=== PATIENT | male | born 1995 | race Caucasian/White ===

== ENCOUNTER 2016-09-10 07:16 | Emergency (ER) | payer OTHER ==
--- NOTE | 2016-09-10 09:08 | DIAGNOSTIC IMAGING REPORT ---
PROCEDURE: XR FINGER - LEFT INDICATION: TRAUMA/INJURY TECHNIQUE: A P hand and two views of the left first digit. COMPARISON: None. FINDINGS: Normal mineralization. No fractures. Normal osseous alignment. No suspicious soft-tissue calcification or radiodense foreign bodies. IMPRESSION: 1. Intact hand and left first digit.
--- NOTE | 2016-09-10 09:47 | ED CLINICAL REPORT ---
Clinical Report - Physicians/Mid Levels [facility] [address] [place] [address] 09/10/2016 7:23 Patient: DWAYNE GRULLON Time Seen: 09:04; initial patient contact. Arrived- By private vehicle. Historian- patient. HISTORY OF PRESENT ILLNESS Chief Complaint: Injury to the left thumb. The injury happened just prior to arrival. Occurred at work. The patient sustained a crush injury- caught hand in machine. Patient is experiencing mild pain. Patient denies injury to the head. REVIEW OF SYSTEMS The patient sustained a laceration. No swelling, tingling, numbness, weakness or foreign body. All systems otherwise negative, except as recorded above. PAST HISTORY Negative. The patient's dominant hand is the right. Last tetanus immunization was more than 5 years ago. Problems: no known problems. Surgeries: No history of previous surgery. Additional Surgeries: no known surgeries. Medications: None. Allergies: No Known Drug Allergy. SOCIAL HISTORY Never smoker. No alcohol use or drug use. ADDITIONAL NOTES The nursing notes have been reviewed with agreement regarding the chief complaint, PMH and patient medications and allergies. PHYSICAL EXAM Vital Signs: 09/10/2016 07:36 BP: 122/65. HR: 73. RR: 16. O2 saturation: 100%. Temp: 98.5 F. Pain level now: 2/10. Have been reviewed as normal. Appearance: Alert. Oriented X3. No acute distress. Skin: Skin warm and dry. Extremities: Tip of left thumb: mild tenderness and superficial 0.5 cm laceration, which involves the nail bed; nail partially avulsed. No swelling or foreign body. No subungual hematoma or loss of the nail bed on the left thumb or tip amputation of the left thumb. No wrist injury. Hand and wrist exam otherwise negative. Extremities otherwise negative. Neuro, Vascular and Tendons: Vascular status intact. Sensation intact. Motor intact. Neuro: Oriented X 3. No motor deficit. No sensory deficit. LABS, X-RAYS, AND EKG Lt UE Digits X-ray: No fracture. Normal alignment. No bony lesion, air in the soft tissue or foreign body. Soft tissues normal. Joint spaces normal. Views: AP and lateral. Technique: good. The X-rays were independently viewed by me and interpreted contemporaneously by me. Prior films were not available for comparison. Interpretation time: 09:46. PROGRESS AND PROCEDURES PROCEDURES (NO SUTURING NECESSARY, SUPERFICIAL AND NOT BLEEDING). Disposition: Discharged home in good and improved condition. Condition: good. CLINICAL IMPRESSION Single superficial laceration to the left thumb with fingernail injury. (NO SUTURE). Treatment of laceration not delayed. No infection or foreign body present. INSTRUCTIONS Protect wound and keep wound area clean. You may wash wounds briefly, then dry. Apply bacitracin twice daily. Follow-up: Follow up with your doctor if not better. Call for an appointment. Screening today revealed the patient's blood pressure to be in the pre-hypertensive range. The patient should follow up with a primary care provider for blood pressure management. (Electronically signed by Mike Begum Dr. 09/10/2016 9:50)
--- NOTE | 2016-09-10 09:47 | ED NURSING NOTES ---
Clinical Report - Nurses [facility] [place] [address] 09/10/2016 7:23 Patient: DWAYNE GRULLON TRIAGE Triage time 07:36. Acuity: LEVEL 4. Chief Complaint: INJURY TO LEFT HAND. 07:39 09/10/16. ABNER COMA SCORE: [place] Coma Scale: 15- eyes open spontaneously (4); best verbal response- oriented x 4 (5); best motor response- obeys commands (6). --07:41 Lazaro Bran R.N. 07:36 09/10/16. BP: 122/65. HR: 73. RR: 16. O2 saturation: 100% on room air. Temp: 98.5 F (oral). Pain level now: 09/26. --07:41 Lazaro Bran R.N. Weight: 81.6 kg stated. Height/Length: 72 inches Per Patient. BMI: 24.4. --07:38 Lazaro Bran R.N. Medications None. --07:38 Lazaro Bran R.N. Allergies No Known Drug Allergy. --07:38 Lazaro Bran R.N. History Arrived by private vehicle. Historian: patient. ( Smashed the tip of his left thumb in a sheet metal brake at 0645 today. Small lac on his thumb, broken nail, bleeding is controlled. Pt reports near syncope immediately after the injury occurred.). 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 SOCIAL HX: Never smoker. No alcohol use or drug use. ABUSE ASSESSMENT: No report of abuse. --07:41 Lazaro Bran R.N. Interventions ID band on patient. To treatment room. --07:41 Lazaro Bran R.N. PHYSICAL ASSESSMENT 07:50 09/10/16. Ambulatory to room. GENERAL / NEURO / PSYCH: Oriented X 4. Alert. Appears in no acute distress. EXTREMITIES: Left hand: tenderness and superficial laceration with controlled bleeding (distal left thumb). --07:50 Lazaro Bran R.N. NURSING PROGRESS NOTES 07:50 09/10/16. Reassurance given. Call light placed in reach. Bed placed in lowest position. Brakes of bed on. Patient ready for evaluation- chart flagged. --07:50 Lazaro Bran R.N. 09:45 09/10/2016 UITSQYA-ZJZACN-EJXVZ PERTUSSIS IM 0.5 mL given. (Lot#: [id number], expiration date: 05/14/2018, Audio Visual Aids Director: sanofi pasteur). Given in the right deltoid. Allergies verified and confirmed 5 rights. --09:46 Lazaro Bran R.N. DISPOSITION / DISCHARGE 10:05 09/10/16. Departure time: 09. Condition at departure: unchanged and stable. No learning barriers present. Discharge instructions provided and reviewed with the patient. Reviewed warnings. Treatments reviewed. Patient verbalized understanding. Written instructions provided in Moldovan. The patient was discharged by the physician. He was discharged home. He left the Emergency Department ambulatory and via private vehicle. Patient driving. --10:05 aLzaro Bran R.N. 09:55 09/10/16. BP: 120/65. HR: 75. RR: 16. O2 saturation: 100% on room air. Temp: 98.5 F (oral). Pain level now: 09/26. --10:05 Lazaro Bran R.N. Locked/Released at 09/10/2016 10:05 by Lazaro Bran R.N.
--- NOTE | 2016-09-10 09:47 | ED CLINICAL REPORT ---
Clinical Report - Physicians/Mid Levels [facility] [address] [place] [address] 09/10/2016 7:23 Patient: DWAYNE GRULLON Time Seen: 09:04; initial patient contact. Arrived- By private vehicle. Historian- patient. HISTORY OF PRESENT ILLNESS Chief Complaint: Injury to the left thumb. The injury happened just prior to arrival. Occurred at work. The patient sustained a crush injury- caught hand in machine. Patient is experiencing mild pain. Patient denies injury to the head. REVIEW OF SYSTEMS The patient sustained a laceration. No swelling, tingling, numbness, weakness or foreign body. All systems otherwise negative, except as recorded above. PAST HISTORY Negative. The patient's dominant hand is the right. Last tetanus immunization was more than 5 years ago. Problems: no known problems. Surgeries: No history of previous surgery. Additional Surgeries: no known surgeries. Medications: None. Allergies: No Known Drug Allergy. SOCIAL HISTORY Never smoker. No alcohol use or drug use. ADDITIONAL NOTES The nursing notes have been reviewed with agreement regarding the chief complaint, PMH and patient medications and allergies. PHYSICAL EXAM Vital Signs: 09/10/2016 07:36 BP: 122/65. HR: 73. RR: 16. O2 saturation: 100%. Temp: 98.5 F. Pain level now: 2/10. Have been reviewed as normal. Appearance: Alert. Oriented X3. No acute distress. Skin: Skin warm and dry. Extremities: Tip of left thumb: mild tenderness and superficial 0.5 cm laceration, which involves the nail bed; nail partially avulsed. No swelling or foreign body. No subungual hematoma or loss of the nail bed on the left thumb or tip amputation of the left thumb. No wrist injury. Hand and wrist exam otherwise negative. Extremities otherwise negative. Neuro, Vascular and Tendons: Vascular status intact. Sensation intact. Motor intact. Neuro: Oriented X 3. No motor deficit. No sensory deficit. LABS, X-RAYS, AND EKG Lt UE Digits X-ray: No fracture. Normal alignment. No bony lesion, air in the soft tissue or foreign body. Soft tissues normal. Joint spaces normal. Views: AP and lateral. Technique: good. The X-rays were independently viewed by me and interpreted contemporaneously by me. Prior films were not available for comparison. Interpretation time: 09:46. PROGRESS AND PROCEDURES PROCEDURES (NO SUTURING NECESSARY, SUPERFICIAL AND NOT BLEEDING). Disposition: Discharged home in good and improved condition. Condition: good. CLINICAL IMPRESSION Single superficial laceration to the left thumb with fingernail injury. (NO SUTURE). Treatment of laceration not delayed. No infection or foreign body present. INSTRUCTIONS Protect wound and keep wound area clean. You may wash wounds briefly, then dry. Apply bacitracin twice daily. Follow-up: Follow up with your doctor if not better. Call for an appointment. Screening today revealed the patient's blood pressure to be in the pre-hypertensive range. The patient should follow up with a primary care provider for blood pressure management. (Electronically signed by Mike Begum Dr. 09/10/2016 9:50)
--- NOTE | 2016-09-10 09:47 | ED ORDER SUMMARY ---
..... Patient: DWAYNE GRULLON OrderSheet [facility] VisitID: [id number] [address] [place] [address] 21y, M Registration Date/Time: 09/10/2016 ORDER SHEET Weight: 81.6 kg (stated) Allergies: No Known Drug Allergy GENERAL ORDERS: Finger Left (thumb) Urgent (08:33 09/10/2016 Dong SAMUELS) (9:20 LNations ER Tech1) MEDICATION ORDERS: Jfjqnlt-Qxdrfj-Zazju Pertussis IM 0.5 mL (NOW, per protocol) (09:13 09/10/2016 Patria Fox) (9:46 Erin Matthew) IV FLUIDS: ORDER SHEET NOTES: [Electronically signed by Mike Begum Dr. (09:50 09/10/2016)] [Electronically signed by Lazaro Bran R.N. (10:05 09/10/2016)] [Electronically locked/signed by Lazaro Bran R.N. (10:05 09/10/2016)]
--- NOTE | 2016-09-10 09:47 | ED NURSING NOTES ---
Clinical Report - Nurses [facility] [place] [address] 09/10/2016 7:23 Patient: DWAYNE GRULLON TRIAGE Triage time 07:36. Acuity: LEVEL 4. Chief Complaint: INJURY TO LEFT HAND. 07:39 09/10/16. ABNER COMA SCORE: [place] Coma Scale: 15- eyes open spontaneously (4); best verbal response- oriented x 4 (5); best motor response- obeys commands (6). --07:41 Lazaro Bran R.N. 07:36 09/10/16. BP: 122/65. HR: 73. RR: 16. O2 saturation: 100% on room air. Temp: 98.5 F (oral). Pain level now: 09/26. --07:41 Lazaro Bran R.N. Weight: 81.6 kg stated. Height/Length: 72 inches Per Patient. BMI: 24.4. --07:38 Lazaro Bran R.N. Medications None. --07:38 Lazaro Bran R.N. Allergies No Known Drug Allergy. --07:38 Lazaro Bran R.N. History Arrived by private vehicle. Historian: patient. ( Smashed the tip of his left thumb in a sheet metal brake at 0645 today. Small lac on his thumb, broken nail, bleeding is controlled. Pt reports near syncope immediately after the injury occurred.). 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 SOCIAL HX: Never smoker. No alcohol use or drug use. ABUSE ASSESSMENT: No report of abuse. --07:41 Lazaro Bran R.N. Interventions ID band on patient. To treatment room. --07:41 Lazaro Bran R.N. PHYSICAL ASSESSMENT 07:50 09/10/16. Ambulatory to room. GENERAL / NEURO / PSYCH: Oriented X 4. Alert. Appears in no acute distress. EXTREMITIES: Left hand: tenderness and superficial laceration with controlled bleeding (distal left thumb). --07:50 Lazaro Bran R.N. NURSING PROGRESS NOTES 07:50 09/10/16. Reassurance given. Call light placed in reach. Bed placed in lowest position. Brakes of bed on. Patient ready for evaluation- chart flagged. --07:50 Lazaro Bran R.N. 09:45 09/10/2016 XEVIDJY-JLZQOI-CZRIW PERTUSSIS IM 0.5 mL given. (Lot#: [id number], expiration date: 05/14/2018, Records Management Analyst: sanofi pasteur). Given in the right deltoid. Allergies verified and confirmed 5 rights. --09:46 Lazaro Bran R.N. DISPOSITION / DISCHARGE 10:05 09/10/16. Departure time: 09. Condition at departure: unchanged and stable. No learning barriers present. Discharge instructions provided and reviewed with the patient. Reviewed warnings. Treatments reviewed. Patient verbalized understanding. Written instructions provided in Guyanese. The patient was discharged by the physician. He was discharged home. He left the Emergency Department ambulatory and via private vehicle. Patient driving. --10:05 Lazaro Bran R.N. 09:55 09/10/16. BP: 120/65. HR: 75. RR: 16. O2 saturation: 100% on room air. Temp: 98.5 F (oral). Pain level now: 09/26. --10:05 Lazaro Bran R.N. Locked/Released at 09/10/2016 10:05 by Lazaro Bran R.N.
--- NOTE | 2016-09-10 09:47 | ED ORDER SUMMARY ---
..... Patient: DWAYNE GRULLON OrderSheet [facility] VisitID: [id number] [address] [place] [address] 21y, M Registration Date/Time: 09/10/2016 ORDER SHEET Weight: 81.6 kg (stated) Allergies: No Known Drug Allergy GENERAL ORDERS: Finger Left (thumb) Urgent (08:33 09/10/2016 Dong SAMUELS) (9:20 LNations ER Tech1) MEDICATION ORDERS: Grbkgof-Fzyrag-Ggfsg Pertussis IM 0.5 mL (NOW, per protocol) (09:13 09/10/2016 Patria Fox) (9:46 Erin Matthew) IV FLUIDS: ORDER SHEET NOTES: [Electronically signed by Mike Begum Dr. (09:50 09/10/2016)] [Electronically signed by Lazaro Bran R.N. (10:05 09/10/2016)] [Electronically locked/signed by Lazaro Bran R.N. (10:05 09/10/2016)]
--- NOTE | 2016-09-10 10:05 | ED MED RECONCILIATION SUMMARY ---
Patient: DWAYNE GRULLON Medication Reconciliation Report [facility] VisitID: [id number] [address] [place] [address] 21y, M Registration Date/Time: 09/10/2016 Weight: 81.6 kg Height/Length: 72 in. BMI: 24.4 ALLERGIES: No Known Drug Allergy The patient's Home Medications are listed below: NONE. The source(s) of the original Home Medication information: Not obtained. The following Medications were given to the patient in the Emergency Department: SUHGAEC-EYHHRZ-ARIOS PERTUSSIS [IM] IM 0.5 mL, administered: 09/10/2016 9:45:00 AM The following Medications were prescribed to the patient: None.
--- NOTE | 2016-09-10 10:05 | ED MAR SUMMARY ---
..... Medication Administration Record [facility] [address] [place] [address] Patient: DWAYNE GRULLON Visit ID: [id number] 21y, M Weight: 81.6 kg Height/Length: 72 in BMI: 24.4 ALLERGIES: No Known Drug Allergy Given 09:45 09/10/2016 Lazaro Bran R.N. Medication Administered: VSYPWQY-XUDHLV-VOOGU PERTUSSIS [IM], Dose: 0.5 mL IM. Medication Ordered: Buxpsnk-Ufaicj-Scnii Pertussis IM 0.5 mL (NOW, per protocol).
--- NOTE | 2016-09-10 10:05 | ED MAR SUMMARY ---
..... Medication Administration Record [facility] [address] [place] [address] Patient: DWAYNE GRULLON Visit ID: [id number] 21y, M Weight: 81.6 kg Height/Length: 72 in BMI: 24.4 ALLERGIES: No Known Drug Allergy Given 09:45 09/10/2016 Lazaro Bran R.N. Medication Administered: JBPJSMT-NHCYGV-DMNDD PERTUSSIS [IM], Dose: 0.5 mL IM. Medication Ordered: Vvndfzw-Ytyfci-Xhdej Pertussis IM 0.5 mL (NOW, per protocol).
--- NOTE | 2016-09-10 10:05 | ED DISCHARGE INSTRUCTIONS ---
Patient: DWAYNE GRULLON General Instructions [facility] VisitID: [id number] [place] [address] 21y, M Registration Date/Time: 09/10/2016 Single superficial laceration to the left thumb with fingernail injury. (NO SUTURE). Treatment of laceration not delayed. No infection or foreign body present. INSTRUCTIONS Protect wound and keep wound area clean. You may wash wounds briefly, then dry. Apply bacitracin twice daily. Follow-up: Follow up with your doctor if not better. Call for an appointment. Screening today revealed the patient's blood pressure to be in the pre-hypertensive range. The patient should follow up with a primary care provider for blood pressure management. ADDITIONAL INFORMATION Laceration (All Closures) Alaceration is a cut through the skin. This will usually require stitches (sutures) or parrish if it is deep. Minor cuts may be treated with a surgical tape closure orskin glue. Home care The following guidelines will help you care for your laceration at home: Extremity, face, or trunk wounds Keep the wound clean and dry. If a bandage was applied and it becomes wet or dirty, replace it. Otherwise, leave it in place for the first 24 hours. If stitches or parrish were used, clean the wound daily. After removing the bandage, wash the area with soap and water. Use a wet cotton swab to loosen and remove any blood or crust that forms. The doctor may prescribe an antibiotic cream or ointment to prevent infection. Do not stop taking this medication until you have finished the prescribed course or the doctor tells you to stop. The doctor may also prescribe medications for pain. Follow the doctors instructions for taking these medications. You may remove the bandage to shower as usual after the first 24 hours, but do not soak the area in water (no swimming) until the stitches or parrish are removed. If surgical tape was used, keep the area clean and dry. If it becomes wet, blot it dry with a towel. If skin glue was used, do not scratch, rub, or pick at the adhesive film. Do not place tape directly over the film. Do not apply liquid, ointment, or creams to the wound while the film is in place. Do not clean the wound with peroxide and do not apply ointments. Avoid activities that cause heavy sweating until the film has fallen off. Protect the wound from prolonged exposure to sunlight or tanning lamps. You may shower as usual but do not soak the wound in water (no baths or swimming). The film will fall off by itself in 510 days. Scalp wounds During the first two days, you may carefully rinse your hair in the shower to remove blood, glass or dirt particles. After two days, you may shower and shampoo your hair normally. Do not soak your scalp in the tub or go swimming until the stitches or parrish have been removed. Talk with your doctor before applying any antibiotic ointment to the wound. Mouth wounds Eat soft foods to reduce pain. If the cut is inside of your mouth, clean by rinsing after each meal and at bedtime with a mixture of equal parts water and hydrogen peroxide (do not swallow!). Or, you can use a cotton swab to directly apply hydrogen peroxide onto the cut. Mouth wounds can be painful when eating. You may use an pzoo-kah-nmekxfx local numbing solution for pain relief. If this is not available, you may use any numbing solution for teething babies. You may apply this directly to the sores with a cotton-tip swab or with your finger. Follow-up care Follow up with your health care provider. Most skin wounds heal within ten days. Mouth and facial wounds heal within five days. However, even with proper treatment, a wound infection may sometimes occur. Therefore, you should check the wound daily for signs of infection listed below. Stitches should be removed from the face within five days; stitches and parrish should be removed from other parts of the body within 714 days. If dissolving stitches were used in the mouth, these will fall out or dissolve without the need for removal. If tape closures were used, remove them yourself if they have not fallen off after 7 days. Ifskin glue was used, the film will fall off by itself in 510 days. When to seek medical care Get prompt medical attention if any of these occur: Bleeding not controlled by direct pressure Signs of infection, including increasing pain in the wound, increasing wound redness or swelling, or pus coming from the wound Fever of 100.4F (38C) or higher, or as directed by your health care provider Stitches or parrish come apart or fall out or surgical tape falls off before 7 days Wound edges re-open Bandage Change If the bandage becomes wet or dirty, replace it. Otherwise, leave it in place for the first 24 hours. Then once a day: After removing the bandage, wash the area with soap and water. Use a wet cotton swab to loosen and remove any blood or crust that forms on the wound. After cleaning, apply a thin layer of antibiotic ointment or cream. Reapply the bandage. You may shower as usual after the first 24 hours. If the bandage is on an arm or leg, cover it with a plastic bag rubber banded at both ends before showering. No tub baths or swimming until the bandage is removed and the wound healed (at least 7 days). You have been given the following additional information: Laceration, All Dressing Change (Electronically signed by Mike Begum Dr. 09/10/2016 9:50)
--- NOTE | 2016-09-10 10:05 | ED MED RECONCILIATION SUMMARY ---
Patient: DWAYNE GRULLON Medication Reconciliation Report [facility] VisitID: [id number] [address] [place] [address] 21y, M Registration Date/Time: 09/10/2016 Weight: 81.6 kg Height/Length: 72 in. BMI: 24.4 ALLERGIES: No Known Drug Allergy The patient's Home Medications are listed below: NONE. The source(s) of the original Home Medication information: Not obtained. The following Medications were given to the patient in the Emergency Department: CONIOYG-CGFLTS-SOAAF PERTUSSIS [IM] IM 0.5 mL, administered: 09/10/2016 9:45:00 AM The following Medications were prescribed to the patient: None.
== END 2016-09-10 09:57 | disposition home or self-care (01) ==
LOC: ED SRH 07:16
DX: S61.112A Laceration without foreign body of left thumb with damage to nail, initial encounter (principal); W23.0XXA Caught, crushed, jammed, or pinched between moving objects, initial encounter; Y92.69 Other specified industrial and construction area as the place of occurrence of the external cause; Y99.0 Civilian activity done for income or pay; Y93.89 Activity, other specified; Z23 Encounter for immunization